=== PATIENT | male | born 1940 | race Caucasian/White ===

== ENCOUNTER 2017-05-04 10:18 | Outpatient (CLI) | payer MEDICARE | END 2017-05-04 10:19 | disposition home or self-care (01) | LOC: SC 10:18 | PROVIDERS: ATTEND Internal Medicine Pulmonary Disease | DX: G47.30 Sleep apnea, unspecified (principal); G47.8 Other sleep disorders; R06.83 Snoring | CPT/HCPCS: 99203; G0463; 99212 ==

== ENCOUNTER 2017-07-28 19:29 | Outpatient (CLI) | payer MEDICARE | END 2017-07-28 19:30 | disposition home or self-care (01) | LOC: SC 19:29 | PROVIDERS: ATTEND Internal Medicine Pulmonary Disease | DX: G47.33 Obstructive sleep apnea (adult) (pediatric) (principal); G47.61 Periodic limb movement disorder | CPT/HCPCS: 95810 ==

== ENCOUNTER 2017-08-13 13:14 | Outpatient (CLI) | payer MEDICARE | END 2017-08-13 13:15 | disposition home or self-care (01) | LOC: SC 13:14 | PROVIDERS: ATTEND Nurse Practitioner Family | DX: G47.33 Obstructive sleep apnea (adult) (pediatric) (principal) | CPT/HCPCS: 99214; G0463; 99212 ==

== ENCOUNTER 2017-10-15 09:37 | Outpatient (CLI) | payer MEDICARE | END 2017-10-15 09:38 | disposition home or self-care (01) | LOC: SC 09:37 | PROVIDERS: ATTEND Nurse Practitioner Family | DX: G47.33 Obstructive sleep apnea (adult) (pediatric) (principal) | CPT/HCPCS: 99214; G0463; 99212 ==

== ENCOUNTER 2017-10-16 19:36 | Outpatient (CLI) | payer MEDICARE | END 2017-10-16 19:37 | disposition home or self-care (01) | LOC: SC 19:36 | PROVIDERS: ATTEND Internal Medicine Pulmonary Disease | DX: G47.33 Obstructive sleep apnea (adult) (pediatric) (principal); G47.61 Periodic limb movement disorder | CPT/HCPCS: 95811 ==

== ENCOUNTER 2017-11-12 14:24 | Outpatient (CLI) | payer MEDICARE | END 2017-11-12 14:25 | disposition home or self-care (01) | LOC: SC 14:24 | PROVIDERS: ATTEND Nurse Practitioner Family | DX: G47.33 Obstructive sleep apnea (adult) (pediatric) (principal); G47.61 Periodic limb movement disorder; I49.9 Cardiac arrhythmia, unspecified | CPT/HCPCS: 99214; G0463; 99212 ==

== ENCOUNTER 2018-01-12 08:21 | Outpatient (CLI) | payer MEDICARE ==
--- NOTE | 2018-01-12 09:50 | XRAY Report ---
Reason: HTN Procedure Date: 01/12/2018 Accession Number: [id number] / [id number] Procedure: XR - Chest 2 View X-Ray CPT Code: 76527 FULL RESULT: EXAM: CHEST RADIOGRAPHY EXAM DATE: 01/12/2018 08:39 AM. CLINICAL HISTORY: Dyspnea on exertion. COMPARISON: XR chest PA and LAT 11/01/2008 10:43 AM. TECHNIQUE: 2 views. FINDINGS: Lungs/Pleura: In the medial right lung base seen is a triangular posterior opacity, which is likely a small amount of atelectasis. No pleural effusion. No pneumothorax. Normal volumes. Mediastinum: The cardiac silhouette is borderline enlarged. Other: None. IMPRESSION: Borderline cardiomegaly. Subsegmental atelectasis at the right lung base. RADIA
== END 2018-01-12 08:22 | disposition home or self-care (01) ==
LOC: DI 08:21
PROVIDERS: ATTEND Internal Medicine
DX: I10 Essential (primary) hypertension (principal); I51.7 Cardiomegaly; J98.11 Atelectasis
CPT/HCPCS: 71046

== ENCOUNTER 2018-02-16 08:55 | Outpatient (CLI) | payer MEDICARE | END 2018-02-16 08:56 | disposition home or self-care (01) | LOC: SC 08:55 | PROVIDERS: ATTEND Nurse Practitioner Family | DX: G47.33 Obstructive sleep apnea (adult) (pediatric) (principal) | CPT/HCPCS: 99214; G0463; 99212 ==

== ENCOUNTER 2021-02-10 15:27 | Outpatient (CLI) | payer MEDICARE | END 2021-02-10 15:28 | disposition critical access hospital (66) | LOC: EMS 15:27 | DX: S09.90XA Unspecified injury of head, initial encounter (principal); R41.0 Disorientation, unspecified; V43.53XA Car driver injured in collision with pick-up truck in traffic accident, initial encounter; Y93.89 Activity, other specified; Y92.414 Local residential or business street as the place of occurrence of the external cause | CPT/HCPCS: A0425; A0427 ==

== ENCOUNTER 2021-02-10 15:37 | Emergency (ER) | payer MEDICARE ==
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
[2021-02-10 15:54] LABS: BASOPHILS % (AUTO) 0.5 %; EOSINOPHILS # (AUTO) 0.3 10^3/uL (0.0-0.7); EOSINOPHILS % (AUTO) 3.9 %; HCT - HEMATOCRIT 34.1 % (42.0-52.0); HGB - HEMOGLOBIN 11.3 g/dL (14.0-18.0); LYMPHOCYTES # (AUTO) 1.6 10^3/uL (1.5-3.5); MEAN CORPUSCULAR HEMOGLOBIN 31.9 pg (27.0-31.0); MEAN CORPUSCULAR HGB CONC 33.1 g/dL (32.0-36.0); MEAN CORPUSCULAR VOLUME 96.3 fL (80.0-94.0); MEAN PLATELET VOLUME 10.8 fL (7.4-11.4); MONOCYTES % (AUTO) 12.8 %; NEUTROPHILS # (AUTO) 5.1 10^3/uL (1.5-6.6); NEUTROPHILS % (AUTO) 62.4 %; PLT - PLATELET COUNT 166 10^3/uL (130-450); RED BLOOD COUNT 3.54 10^6/uL (4.70-6.10); RED CELL DISTRIBUTION WIDTH 12.5 % (12.0-15.0); WHITE BLOOD COUNT 8.1 x10^3/uL (4.8-10.8)
[2021-02-10 16:00] LABS: INR 1.1 (0.8-1.2); PT - PROTHROMBIN TIME 12.1 secs (9.9-12.6)
[2021-02-10] MEDS ORDERED: IOVERSOL 320 100 ML VIAL IVP ONE ×2 (16:03→17:22)
[2021-02-10 16:07] LABS: PARTIAL THROMBOPLASTIN TIME 28.6 secs (24.9-33.3)
[2021-02-10 16:09] LABS: ALBUMIN/GLOBULIN RATIO 1.3 (1.0-2.2); BILIRUBIN,TOTAL 0.8 mg/dL (0.2-1.0); CREATININE 1.1 mg/dL (0.6-1.2); POTASSIUM 3.9 mmol/L (3.5-5.0)
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
[2021-02-10] MEDS ORDERED: ONDANSETRON 4 MG/2 ML VIAL IVP STA (17:25)
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
[2021-02-10 18:34] LABS: B. PARAPERTUSSIS- RESP PCR PAN NOT DETECTED; B. PERTUSSIS- RESP PCR PANEL NOT DETECTED; C. PNEUMONIAE- RESP PCR PANEL NOT DETECTED; CORONAVIRUS 229E-RESP PCR NOT DETECTED; CORONAVIRUS HKU1-RESP PCR NOT DETECTED; CORONAVIRUS NL63-RESP PCR NOT DETECTED; CORONAVIRUS OC43-RESP PCR NOT DETECTED; HUMAN METAPNEUMOVIRUS NOT DETECTED; INFLUENZA A- RESP PCR PANEL NOT DETECTED; INFLUENZA B - RESP PCR PANEL NOT DETECTED; M. PNEUMONIAE- RESP PCR PANEL NOT DETECTED; PARAINFLUENZA VIRUS 1 NOT DETECTED; PARAINFLUENZA VIRUS 2 NOT DETECTED; PARAINFLUENZA VIRUS 3 NOT DETECTED; PARAINFLUENZA VIRUS 4 NOT DETECTED; RHINOVIRUS/ENTEROVIRUS NOT DETECTED; RSV- RESP PCR PANEL NOT DETECTED; SARS-CoV-2 -RESP PCR PANEL NOT DETECTED
[2021-02-10 19:34] VITALS: BP 146/56
== END 2021-02-10 19:38 | disposition short-term general hospital (02) ==
LOC: EDUNIT# → ED 15:37
DX: R41.82 Altered mental status, unspecified (principal); S06.5X0A Traumatic subdural hemorrhage without loss of consciousness, initial encounter; S01.01XA Laceration without foreign body of scalp, initial encounter; V43.52XA Car driver injured in collision with other type car in traffic accident, initial encounter; Y93.89 Activity, other specified; Y92.410 Unspecified street and highway as the place of occurrence of the external cause; Z20.822 Contact with and (suspected) exposure to COVID-19
CPT/HCPCS: 12034; 36415; 70450; 71260; 72125; 74177; 80053; 83690; 85025; 85610; 85730; 87631; 96374; 99283; 99285; Q9967; 0202U

== ENCOUNTER 2021-02-10 19:39 | Outpatient (CLI) | payer MEDICARE | END 2021-02-10 19:40 | disposition short-term general hospital (02) | LOC: EMS 19:39 | PROVIDERS: ATTEND Emergency Medicine | DX: S06.5X9A Traumatic subdural hemorrhage with loss of consciousness of unspecified duration, initial encounter (principal); V49.9XXA Car occupant (driver) (passenger) injured in unspecified traffic accident, initial encounter | CPT/HCPCS: A0425; A0428 ==

== ENCOUNTER 2021-12-10 16:08 | Emergency (ER) | payer MEDICARE ==
[2021-12-10 16:17] VITALS: BP 129/75
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
== END 2021-12-10 17:45 | disposition home or self-care (01) ==
LOC: ED 16:08
DX: S06.0X0A Concussion without loss of consciousness, initial encounter (principal); W19.XXXA Unspecified fall, initial encounter; W22.09XA Striking against other stationary object, initial encounter; J01.01 Acute recurrent maxillary sinusitis
CPT/HCPCS: 99282; 99284

== ENCOUNTER 2022-01-04 20:42 | Outpatient (CLI) | payer MEDICARE | END 2022-01-04 20:43 | disposition critical access hospital (66) | LOC: EMS 20:42 | DX: R53.1 Weakness (principal); W01.198A Fall on same level from slipping, tripping and stumbling with subsequent striking against other object, initial encounter; Y92.002 Bathroom of unspecified non-institutional (private) residence as the place of occurrence of the external cause; Z79.01 Long term (current) use of anticoagulants | CPT/HCPCS: A0425; A0427 ==

== ENCOUNTER 2022-01-04 20:58 | Emergency (ER) | payer MEDICARE ==
--- NOTE | 2022-01-04 20:58 | ED Physician Documentation ---
PD HPI HEAD INJURY - Stated complaint Stated Complaint: GLF/HEAD INJ - History obtained from History obtained from: Patient, Family, EMS - History of Present Illness Mechanism of head injury: Fell Where head injury occurred: Home Timing - onset: How many minutes ago (approximately 30-40 minutes [employer]PPORT [employer] TECH) Pain level now: 2 (abdominal (periumbilical)) Location of injury: Back Associated symptoms: LOC (per patient's son (in ED at bedside)) Contributing factors: Anticoagulated (eliquis). No: Intoxicated Similar symptoms before: Has not had sx before - Additional information Additional information: BIBA for GLF, head injury. Patient was in his bathroom at home putting his pants back on after using the bathroom when he lost his balance and fell, struck the back of his head against the bathtub. Family (patient's son) witnessed the incident, possible LOC but less than 5-10 seconds. Patient is on eliquis (atrial fibrillation). Patient denies SARAVIA. He does c/o mild periumbilical pain, although he indicates this has been x 2-3 days. Patient's son says patient has had 3-4 weeks of generalized weakness, decreasing appetite with decreasing PO intake, intermittent nausea and vomiting as well as episodes of diarrhea alternating with constipation. Review of Systems Constitutional: reports: Fatigue. denies: Fever, Chills, Sweats Eyes: reports: Reviewed and negative Cardiac: reports: Reviewed and negative Respiratory: reports: Reviewed and negative GI: reports: Abdominal Pain, Nausea, Vomiting, Constipation, Diarrhea, Bloody / black stool (patient says he has had dark black stools x 2-3 days). denies: Abdominal Swelling, Hematemesis : denies: Dysuria, Frequency Skin: reports: Reviewed and negative Musculoskeletal: reports: Reviewed and negative Neurologic: reports: Generalized weakness, Head injury, LOC. denies: Focal weakness, Numbness, Confused, Altered mental status, Headache PD PAST MEDICAL HISTORY - Past Medical History Past Medical History: Yes Cardiovascular: Atrial fibrillation - Present Medications Home Medications: Ambulatory Orders Medication Instructions Recorded Confirmed Amlodipine Besylate 5 mg PO BID 04/30/13 08/01/14 Aspirin Chewable [[place] 81 mg PO DAILY 04/30/13 07/31/14 Aspirin] Finasteride [Proscar] 5 mg PO DAILY 04/30/13 07/31/14 Metoprolol Tartrate 50 mg PO BID 04/30/13 08/01/14 Simvastatin [Zocor] 20 mg PO QPM 04/30/13 07/31/14 Tamsulosin HCl 0.4 mg PO DAILY 04/30/13 07/31/14 hydroCHLOROthiazide 12.5 mg PO DAILY 04/30/13 07/31/14 [Hydrochlorothiazide] Doxycycline Hyclate 100 mg PO BID #14 12/10/21 - Allergies Allergies/Adverse Reactions: Allergies Allergy/AdvReac Type Severity Reaction Status Date / Time Penicillins Allergy Severe Edema Verified 12/10/21 16:17 PD ED PE NORMAL - Vitals Vital signs reviewed: Yes - General General: Alert and oriented X 3, No acute distress, Other (hard of hearing) - HEENT HEENT: Atraumatic, PERRL, EOMI - Neck Neck: No bony TTP - Cardiac Cardiac: No murmur - Respiratory Respiratory: No respiratory distress - Abdomen Abdomen: Soft, Non tender, Other (scattered echymoses, purple color. ) - Back Back: No spinal TTP - Extremities Extremities: No deformity, Normal ROM s pain - Neuro Neuro: Alert and oriented X 3, No motor deficit, No sensory deficit Eye Opening: Spontaneous Motor: Obeys Commands Verbal: Oriented GCS Score: 15 PD ED PE EXPANDED - Eyes Eyes: Other (pale conjunctiva) - Cardiac Cardiac: Irregularly irregular - Respiratory Respiratory: Rhonchi (left mid/lower lung hope) - Rectal Rectal: Heme Occult Pos - QC + - Derm Derm: Pale Results - Vitals Vitals: Oxygen O2 Source Room air - EKG (time done) No standard instances Rate: Rate (enter#) (94) Rhythm: Atrial fibrillation Carter: Normal Intervals: Wide QRS, Other (NSIVCD) Ischemia: Normal ST segments Compare to prior EKG: Old EKG unavailable Computer interpretation: Disagree with computer (no discernable, regular p waves) - Labs Labs: Microbiology 01/04/22 21:40 Occult Blood - Final Stool Laboratory Tests 01/04/22 01/04/22 01/04/22 21:03 21:03 21:03 WBC 14.3 H RBC 1.91 L Hgb 5.8 L* Hct 17.4 L* MCV 91.1 MCH 30.4 MCHC 33.3 RDW 13.9 Plt Count 338 MPV 9.8 Neut # (Auto) 12.4 H Lymph # (Auto) 0.5 L [place] # (Auto) 0.9 Eos # (Auto) 0.1 Baso # (Auto) 0.0 Absolute Nucleated RBC 0.00 Nucleated RBC % 0.0 PT 19.6 H INR 1.8 H APTT 30.1 Sodium 131 L Potassium 6.7 H* Chloride 102 Carbon Dioxide 14 L Anion Gap 15.0 H BUN 175 H* Creatinine 9.6 H* Estimated GFR (MDRD) 5 L Glucose 140 H Calcium 7.9 L Total Bilirubin 0.6 AST 21 ALT 28 Alkaline Phosphatase 148 H Total Protein 6.0 L Albumin 2.2 L Globulin 3.8 Albumin/Globulin Ratio 0.6 L Lipase 52 H Nasal Adenovirus (PCR) Nasal B. parapertussis DNA (PCR) Nasal Coronavir 229E PCR Nasal Coronavir HKU1 PCR Nasal Coronavir NL63 PCR Nasal Coronavir OC43 PCR Nasal Enterovir/Rhinovir PCR Nasal Influenza B PCR Nasal Influenza A PCR Nasal Parainfluen 1 PCR Nasal Parainfluen 2 PCR Nasal Parainfluen 3 PCR Nasal Parainfluen 4 PCR Nasal RSV (PCR) Nasal B.pertussis DNA PCR Nasal C.pneumoniae (PCR) Shay Human Metapneumo PCR Nasal M.pneumoniae (PCR) Nasal SARS-CoV-2 (PCR) Blood Type Blood Type Recheck Antibody Screen Crossmatch IS Only 01/04/22 01/04/22 01/04/22 21:03 21:37 22:46 WBC RBC Hgb Hct MCV MCH MCHC RDW Plt Count MPV Neut # (Auto) Lymph # (Auto) [place] # (Auto) Eos # (Auto) Baso # (Auto) Absolute Nucleated RBC Nucleated RBC % PT INR APTT Sodium 129 L Potassium 6.7 H* Chloride 98 L Carbon Dioxide 14 L Anion Gap 17.0 H BUN 177 H* Creatinine 10.6 H* Estimated GFR (MDRD) 5 L Glucose 127 H Calcium 7.7 L Total Bilirubin AST ALT Alkaline Phosphatase Total Protein Albumin Globulin Albumin/Globulin Ratio Lipase Nasal Adenovirus (PCR) Nasal B. parapertussis DNA (PCR) Nasal Coronavir 229E PCR Nasal Coronavir HKU1 PCR Nasal Coronavir NL63 PCR Nasal Coronavir OC43 PCR Nasal Enterovir/Rhinovir PCR Nasal Influenza B PCR Nasal Influenza A PCR Nasal Parainfluen 1 PCR Nasal Parainfluen 2 PCR Nasal Parainfluen 3 PCR Nasal Parainfluen 4 PCR Nasal RSV (PCR) Nasal B.pertussis DNA PCR Nasal C.pneumoniae (PCR) Shay Human Metapneumo PCR Nasal M.pneumoniae (PCR) Nasal SARS-CoV-2 (PCR) Blood Type O POSITIVE Blood Type Recheck O POSITIVE Antibody Screen NEGATIVE Crossmatch IS Only See Detail 01/04/22 01/05/22 01/05/22 23:58 04:20 05:12 WBC RBC Hgb 6.3 L* Hct 18.9 L* MCV MCH MCHC RDW Plt Count MPV Neut # (Auto) Lymph # (Auto) [place] # (Auto) Eos # (Auto) Baso # (Auto) Absolute Nucleated RBC Nucleated RBC % PT INR APTT Sodium 132 L Potassium 6.4 H* Chloride 101 Carbon Dioxide 14 L Anion Gap 17.0 H BUN 170 H* Creatinine 10.5 H* Estimated GFR (MDRD) 5 L Glucose 99 Calcium 7.9 L Total Bilirubin AST ALT Alkaline Phosphatase Total Protein Albumin Globulin Albumin/Globulin Ratio Lipase Nasal Adenovirus (PCR) NOT DETECTED Nasal B. parapertussis DNA (PCR) NOT DETECTED Nasal Coronavir 229E PCR NOT DETECTED Nasal Coronavir HKU1 PCR NOT DETECTED Nasal Coronavir NL63 PCR NOT DETECTED Nasal Coronavir OC43 PCR NOT DETECTED Nasal Enterovir/Rhinovir PCR NOT DETECTED Nasal Influenza B PCR NOT DETECTED Nasal Influenza A PCR NOT DETECTED Nasal Parainfluen 1 PCR NOT DETECTED Nasal Parainfluen 2 PCR NOT DETECTED Nasal Parainfluen 3 PCR NOT DETECTED Nasal Parainfluen 4 PCR NOT DETECTED Nasal RSV (PCR) NOT DETECTED Nasal B.pertussis DNA PCR NOT DETECTED Nasal C.pneumoniae (PCR) NOT DETECTED Shay Human Metapneumo PCR NOT DETECTED Nasal M.pneumoniae (PCR) NOT DETECTED Nasal SARS-CoV-2 (PCR) NOT DETECTED Blood Type Blood Type Recheck Antibody Screen Crossmatch IS Only - Rads (name of study) CT head Radiology: Prelim report reviewed, See rad report CT cervical spine Radiology: Prelim report reviewed, See rad report CT chest Radiology: Prelim report reviewed, See rad report CT A/P Radiology: Prelim report reviewed, See rad report PD MEDICAL DECISION MAKING - ED course Complexity details: reviewed old records, reviewed results, re-evaluated patient, considered differential, d/w patient, d/w family ED course: BIBA due to fall and head injury, on eliquis for atrial fibrillation. CT head, neck, abdomen are without acute/concerning findings. CT chest suggests left lower lobe pneumonia. His lab results have critical findings: hemoglobin 5.8, potassium 6.7, BUN 175, creatinine 9.6. He is guiaiac positive (sample was not grossly bloody, not enough sample to determine whether it was dark). Most recent blood tests I have available on [email or web address] are from 02/10/21 at which time hemoglobin was 11.3, normal bun/creatinine. Patient says he has never had a blood transfusion. Patient is given insulin/dextrose, calcium gluconate, kayexelate. He is transfused two units PRBC, with hemoglobin improved after first unit to 6.3. His potassium decreased to 6.4 with these medications. he was placed on sodium bicarbonate drip. Given rocephin and zithromax for the infiltrate on CT chest. His vital signs were stable throughout his long [facility] ED stay; after contacting multiple regional hospitals, an available bed was secured at [facility] and he is transferred there after I discussed the case with Dr. Herrera (hospitalist at [facility]). Patient has POLST indicating DNR, limited interventions. I discussed this with patient and his son and they confirm that patient would not want CPR or intubation. In trying to ascertain extent of treatment he would be agreeable with, I used an example of dialysis and patient said that if dialysis was deemed necessary he would be agreeable to this. - Critical Care Time(min): 60 Time Includes: Direct patient care, Review records, Reassess patient, Document care, Coordinate care, Family consult for tx dec, See progress note Data interpretation: Labs, Pulse ox, See progress note Procedures included in critical care time: See progress note Procedures excluded from critical care time: See progress note Departure - Departure Disposition: 02 Transfer Acute Care Hosp Clinical Impression: Hyperkalemia Anemia Qualifiers: Anemia type: unspecified type Qualified Code(s): D64.9 - Anemia, unspecified Acute renal failure Qualifiers: Acute renal failure type: unspecified Qualified Code(s): N17.9 - Acute kidney failure, unspecified Pneumonia Qualifiers: Pneumonia type: due to unspecified organism Laterality: right Lung location: lower lobe of lung Qualified Code(s): J18.9 - Pneumonia, unspecified organism Gastrointestinal bleed Qualifiers: GI bleed type/associated pathology: unspecified gastrointestinal hemorrhage type Qualified Code(s): K92.2 - Gastrointestinal hemorrhage, unspecified Condition: Stable Discharge Date/Time: 01/05/22 09:34
[2022-01-04 21:22] LABS: BASOPHILS % (AUTO) 0.2 %; EOSINOPHILS # (AUTO) 0.1 10^3/uL (0.0-0.7); EOSINOPHILS % (AUTO) 0.4 %; LYMPHOCYTES # (AUTO) 0.5 10^3/uL (1.5-3.5); LYMPHOCYTES % (AUTO) 3.2 %; MEAN CORPUSCULAR HEMOGLOBIN 30.4 pg (27.0-31.0); MEAN CORPUSCULAR HGB CONC 33.3 g/dL (32.0-36.0); MEAN CORPUSCULAR VOLUME 91.1 fL (80.0-94.0); MEAN PLATELET VOLUME 9.8 fL (7.4-11.4); MONOCYTES # (AUTO) 0.9 10^3/uL (0.0-1.0); MONOCYTES % (AUTO) 6.1 %; NEUTROPHILS # (AUTO) 12.4 10^3/uL (1.5-6.6); NEUTROPHILS % (AUTO) 86.6 %; PLT - PLATELET COUNT 338 10^3/uL (130-450); RED BLOOD COUNT 1.91 10^6/uL (4.70-6.10); RED CELL DISTRIBUTION WIDTH 13.9 % (12.0-15.0); WHITE BLOOD COUNT 14.3 x10^3/uL (4.8-10.8)
[2022-01-04 21:25] LABS: HCT - HEMATOCRIT 17.4 % (42.0-52.0); HGB - HEMOGLOBIN 5.8 g/dL (14.0-18.0)
[2022-01-04 21:38] LABS: INR 1.8 (0.8-1.2); PT - PROTHROMBIN TIME 19.6 secs (9.9-12.6)
[2022-01-04 21:45] LABS: PARTIAL THROMBOPLASTIN TIME 30.1 secs (24.9-33.3)
[2022-01-04 22:08] LABS: ALBUMIN 2.2 g/dL (3.2-5.5); ALBUMIN/GLOBULIN RATIO 0.6 (1.0-2.2); BILIRUBIN,TOTAL 0.6 mg/dL (0.2-1.0); CALCIUM 7.9 mg/dL (8.5-10.3)
[2022-01-04 22:11] LABS: CREATININE 9.6 mg/dL (0.6-1.2); POTASSIUM 6.7 mmol/L (3.5-5.0)
[2022-01-04] MEDS ORDERED: DEXTROSE 50% ABBOJECT 25 GM/50 ML SYRINGE IVP STA (22:21)
[2022-01-04] MEDS ORDERED: INSULIN REGULAR HUMAN 100 UNIT/1 ML 10 ML MDV IVP STA (22:21)
[2022-01-04] MEDS ORDERED: CALCIUM GLUC 1,000MG/50ML-NACL 1,000 MG/50 ML BAG IV STA (22:22)
--- NOTE | 2022-01-04 23:09 | CT Report ---
PROCEDURE: CHEST WO INDICATIONS: fall, left lower chest wall pain TECHNIQUE: Noncontrast 1mm axial images were acquired from the pulmonary apices to the posterior costophrenic an gles. Axial 5 mm soft tissue kernel reconstructions were performed as well as 8 mm axial MIP and cor onal and sagittal 5 mm reformations. For radiation dose reduction, the following was used: automate d exposure control, adjustment of mA and/or kV according to patient size. COMPARISON: Prior chest plain film 01/12/[address] scanning 02/10/2021. FINDINGS: Image quality: Excellent. Lungs and pleura: No acute air space opacities are found on the left but there is a pattern of acute or subacute pneumonia at the right lower lobe. It is moderate in severity and not associated with a pleural effusion. Sternotomy wires, presumed prior CABG.. No pleural effusions or pneumothorax. Anjali tral and peripheral airways are patent and normal in caliber. Mediastinum: Heart size is normal. No pericardial effusion. No mediastinal adenopathy by size crit eria. Thoracic aorta and central pulmonary arteries are normal in size. Esophagus is normal in eryn jimy. No hiatal hernia. Bones and chest wall: No suspicious bony lesions. No vertebral body compression fractures. No axil deion or supraclavicular adenopathy by size criteria. The thyroid is normal in size and there are no incidental findings. Abdomen: Visualized upper abdominal solid organs and bowel loops appear normal in the absence of con trast. IMPRESSION: Moderate pneumonia without pleural effusion right lower lobe. Right midlung pneumonia is mild. No tra alia found. CLINICAL RECOMMENDATION STATEMENTS: In patients <35 years with an ITN detected on CT, MRI, or extrathyroidal ultrasound, the Committee re commends further evaluation with dedicated thyroid ultrasound if the nodule is "e1 cm and has no susp icious imaging features, and if the patient has normal life expectancy. In patients "e35 years with an ITN detected on CT, MRI, or extrathyroidal ultrasound, the Committee r ecommends further evaluation with dedicated thyroid ultrasound if the nodule is "e1.5 cm and has no s uspicious imaging features, and if the patient has normal life expectancy. (ACR, 2014) Reviewed by: Anjel Beckford MD on 01/04/2022 11:07 PM PDT Approved by: Anjel Beckford MD on 01/04/2022 11:07 PM PDT Station ID: [id number]
--- NOTE | 2022-01-04 23:11 | CT Report ---
PROCEDURE: Abdomen/Pelvis WO INDICATIONS: fall, abdominal pain TECHNIQUE: Noncontrast 5 mm thick sections acquired from the diaphragms to the symphysis. 5 mm coronal and sagi ttal reformats were then performed. For radiation dose reduction, the following was used: automated exposure control, adjustment of mA and/or kV according to patient size. COMPARISON: Chest CT scanning same day. Prior CT abdomen/pelvis 02/10/2021.. FINDINGS: Image quality: Quality of visualization is somewhat limited by the absence of intravenous contrast. N o oral contrast was utilized either.. ABDOMEN: Lung bases: Lung bases are clear on the left but demonstrates moderate pneumonia at the right lower lobe and the right mid lung to a lesser degree. Heart size is normal. Solid organs: Liver and spleen are normal in size. Gallbladder appears contracted Pancreas is norm al in contours. No adrenal nodules. Kidneys are normal in size, without hydronephrosis or nephrolit hiasis. Peritoneum and bowel: Unenhanced bowel loops demonstrate normal wall thickness and caliber. No free fluid or air. Nodes and vessels: No retroperitoneal or mesenteric adenopathy by size criteria. Aorta and inferior vena cava are normal in caliber. Miscellaneous: No ventral hernias. PELVIS: Genitourinary: Bladder wall thickness is normal. Miscellaneous: No inguinal hernias or adenopathy. Bones: No suspicious bony lesions. No vertebral body compression fractures. IMPRESSION: Right lower lung pneumonia, no pleural effusion. Quality of visualization through the abdomen and pel vis is somewhat limited by the absence of both oral and intravenous contrast. No acute disease is fou nd, no trauma identified. Reviewed by: Anjel Beckford MD on 01/04/2022 11:10 PM PDT Approved by: Anjel Beckford MD on 01/04/2022 11:10 PM PDT Station ID: [id number]
--- NOTE | 2022-01-04 23:12 | CT Report ---
PROCEDURE: CERVICAL SPINE WO INDICATIONS: fall TECHNIQUE: Noncontrast 3 mm thick sections acquired from the skull base to the T4 level. Sagittal and coronal r eformats were then constructed. For radiation dose reduction, the following was used: automated exp osure control, adjustment of mA and/or kV according to patient size. COMPARISON: None. FINDINGS: Image quality: Excellent. Bones: No fractures or dislocations. Visualized superior ribs are intact. Soft tissues: Prevertebral soft tissues are normal in thickness. No paravertebral hematomas. No ap ical pneumothoraces. 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 No trauma found, no acute disea se. Reviewed by: Anjel Beckford MD on 01/04/2022 11:11 PM PDT Approved by: Anjel Beckford MD on 01/04/2022 11:11 PM PDT Station ID: [id number]
[2022-01-04 23:13] LABS: CALCIUM 7.7 mg/dL (8.5-10.3)
--- NOTE | 2022-01-04 23:14 | CT Report ---
PROCEDURE: HEAD WO INDICATIONS: fall, hit head, on eliquis TECHNIQUE: Noncontrast 4.5 mm thick angled axial sections acquired from the foramen magnum to the vertex. For r adiation dose reduction, the following was used: automated exposure control, adjustment of mA and/or kV according to patient size. COMPARISON: Prior head CT scanning 12/10/2021.. FINDINGS: Image quality: Excellent. CSF spaces: Basal cisterns are patent. No extra-axial fluid collections. Ventricles are normal in size and shape. Brain: No midline shift. No intracranial masses or hemorrhage. Landin-white matter interface is norm al. Skull and face: Calvarium and visualized facial bones are intact, without suspicious lesions. Sinuses: Visualized sinuses and mastoids are clear except for relatively dense opacification at the ethmoid air cells and right sphenoid sinus. This was previously present.. IMPRESSION: No acute disease found. Chronic sinusitis as discussed, densely involving the ethmoid ai r cells and the right maxillary sinus. Reviewed by: Anjel Beckford MD on 01/04/2022 11:13 PM PDT Approved by: Anjel Beckford MD on 01/04/2022 11:13 PM PDT Station ID: [id number]
[2022-01-04 23:16] LABS: POTASSIUM 6.7 mmol/L (3.5-5.0)
[2022-01-04 23:17] LABS: CREATININE 10.6 mg/dL (0.6-1.2)
[2022-01-04] MEDS ORDERED: SODIUM CHLORIDE 0.9% 1,000 ML IV STA (23:27)
[2022-01-04] MEDS ORDERED: SODIUM POLYSTYRENE SULFONATE 15 GM/60 ML BOTTLE PO STA (23:27)
[2022-01-05 01:34] LABS: B. PARAPERTUSSIS- RESP PCR PAN NOT DETECTED; B. PERTUSSIS- RESP PCR PANEL NOT DETECTED; C. PNEUMONIAE- RESP PCR PANEL NOT DETECTED; CORONAVIRUS 229E-RESP PCR NOT DETECTED; CORONAVIRUS HKU1-RESP PCR NOT DETECTED; CORONAVIRUS NL63-RESP PCR NOT DETECTED; CORONAVIRUS OC43-RESP PCR NOT DETECTED; HUMAN METAPNEUMOVIRUS NOT DETECTED; INFLUENZA A- RESP PCR PANEL NOT DETECTED; INFLUENZA B - RESP PCR PANEL NOT DETECTED; M. PNEUMONIAE- RESP PCR PANEL NOT DETECTED; PARAINFLUENZA VIRUS 1 NOT DETECTED; PARAINFLUENZA VIRUS 2 NOT DETECTED; PARAINFLUENZA VIRUS 3 NOT DETECTED; PARAINFLUENZA VIRUS 4 NOT DETECTED; RHINOVIRUS/ENTEROVIRUS NOT DETECTED; RSV- RESP PCR PANEL NOT DETECTED; SARS-CoV-2 -RESP PCR PANEL NOT DETECTED
[2022-01-05] MEDS ORDERED: cefTRIAXone 1 GM in SODIUM CHLORIDE 0.9% MINIBAG 100 ML IV STA (01:47)
[2022-01-05] MEDS ORDERED: AZITHROMYCIN INJ 500 MG in SODIUM CHLORIDE 0.9% 250 ML IV STA (01:47)
[2022-01-05] MEDS ORDERED: cefTRIAXone 1 GM VIAL ONE (03:47)
[2022-01-05 04:26] LABS: HCT - HEMATOCRIT 18.9 % (42.0-52.0); HGB - HEMOGLOBIN 6.3 g/dL (14.0-18.0)
[2022-01-05 05:39] LABS: CALCIUM 7.9 mg/dL (8.5-10.3)
[2022-01-05 05:42] LABS: CREATININE 10.5 mg/dL (0.6-1.2); POTASSIUM 6.4 mmol/L (3.5-5.0)
[2022-01-05] MEDS ORDERED: SODIUM BICARBONATE 150 MEQ in DEXTROSE 5% 1,000 ML IV STA (05:44)
[2022-01-05 08:04] VITALS: BP 107/60
== END 2022-01-05 09:34 | disposition short-term general hospital (02) ==
LOC: EDUNIT# → ED 20:58
DX: D64.9 Anemia, unspecified (principal); N17.9 Acute kidney failure, unspecified; J18.9 Pneumonia, unspecified organism; K92.2 Gastrointestinal hemorrhage, unspecified; I48.91 Unspecified atrial fibrillation; Z20.822 Contact with and (suspected) exposure to COVID-19; W18.30XA Fall on same level, unspecified, initial encounter; Y92.002 Bathroom of unspecified non-institutional (private) residence as the place of occurrence of the external cause
CPT/HCPCS: 36415; 36430; 70450; 71250; 72125; 74176; 80048; 80053; 82272; 83690; 85014; 85018; 85025; 85610; 85730; 86850; 86900; 86901; 86920; 87633; 93005; 96365; 96367; 96368; 96375; 99291; A9270; J1815; P9016; 81001; 81003; 87086